=== PATIENT | female | born 1995 | race Caucasian/White ===

== ENCOUNTER → 2016-10-09 | Outpatient (CLI) | payer BC ==
--- OUTSIDE RECORDS SUMMARY | 2016-10-09 15:46 | XMS REPORT | Continuity of Care Document ---
Author Author Cordelia Storey Address Unknown Phone Unavailable Care Team Providers Care Manuscript Reader Name Role Phone [employer] Unavailable Unavailable Problems Problem Status Onset Date Classification Date Reported Comments Source No data available for this section Problem 12/23/2014 [employer] Medications Allergies, Adverse Reactions, Alerts Immunizations Immunization Date Given Site Status Last Updated Comments Source No data available for this section No data available for this section [employer] Results Vital Signs Encounters Location Location Details Encounter Type Encounter Number Reason For Visit Attending Provider ADM Date DC Date Status Source [facility] [id number] Clinic ( Outpatient) [id number] . LAB [facility] 12/19/2014 Active [employer] [facility] [id number] . LAB [facility] 12/19/2014 12/19/2014 [employer] Procedures Procedure Code Date Perfomer Comments Source No data available for this section [employer] Plan of Care Social History Assessment and Plan Family History Value Date Source Advance Directives Order Name Results Value Date Source
--- NOTE | 2016-10-09 16:01 | Diagnostic Imaging Report ---
INDICATION: Fall with left wrist pain. TECHNIQUE: AP, oblique and lateral views of the left wrist are obtained. FINDINGS: No acute fracture or dislocation is identified. No abnormal lytic or sclerotic focus is seen, and there is no radiopaque foreign body. IMPRESSION: No acute abnormality. Dictated by: Dictated on workstation # [id number]
== END ==
LOC: RAD 15:42
PROVIDERS: ATTEND Nurse Practitioner Community Health
DX: S63.502A Unspecified sprain of left wrist, initial encounter (principal); W19.XXXA Unspecified fall, initial encounter; Y99.8 Other external cause status
CPT/HCPCS: 73110

== ENCOUNTER → 2017-02-24 | Outpatient (CLI) | payer BC ==
--- NOTE | 2017-02-24 11:35 | Diagnostic Imaging Report ---
EXAMINATION: Left breast ultrasound. INDICATION: Palpable lumps. TECHNIQUE: The retroareolar region and the 4 quadrants of the left breast were scanned. FINDINGS: The palpable area at the 1 o'clock periareolar region demonstrates a hypoechoic oval mass with internal vascularity measuring 1.6 x 1.2 x 1.3 cm. It is wider than tall and associated with through transmission. There is another lesion at the 2 o'clock zone periareolar as well measuring 1 x 0.6 x 1.1 cm with minimal heterogeneity and lobulated margins. No internal vascularity is seen. 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 Clinical followup and followup with ultrasound in 3 months would be recommended to ensure stability. ACR BI-RADS Category 3: Probably benign findings. Dictated by: Dictated on workstation # [id number]
== END ==
LOC: RAD 10:35
PROVIDERS: ATTEND Nurse Practitioner Family
DX: N63 Unspecified lump in breast (principal)
CPT/HCPCS: 76641